=== PATIENT | female | born 1970 | race Caucasian/White ===

== ENCOUNTER 2021-07-21 01:24 | Emergency (ER) | payer OTHER ==
[2021-07-21 01:41] VITALS: TEMP 98; BMI 25.0
[2021-07-21] MEDS ORDERED: ONDANSETRON *ODT* 4 MG TABLET SL ONE (02:50)
[2021-07-21] MEDS ORDERED: ACETAMINOPHEN 325 MG TABLET (FP) PO ONE (02:50)
[2021-07-21] MEDS ORDERED: FAMOTIDINE 20 MG TABLET PO ONE (02:50)
[2021-07-21] MEDS ORDERED: ACETAMINOPHEN 325 MG TABLET (FP) ONE (02:55)
[2021-07-21] MEDS ORDERED: ONDANSETRON *ODT* 4 MG TABLET ONE (02:55)
[2021-07-21] MEDS ORDERED: FAMOTIDINE 20 MG TABLET ONE (02:55)
[2021-07-21 03:24] LABS: BASO % 1.1 % (0-2.0); EOS % 0.9 % (0-4.5); HEMATOCRIT 38.4 % (32.4-45.2); HEMOGLOBIN 13.1 GM/dL (10.7-15.3); LYMPH % 16.4 % (8-40); MCH 32.9 pg (25.7-33.7); MCHC 34.1 g/dl (32.0-36.0); MEAN CELL VOLUME 96.6 fl (80-96); MEAN PLT VOLUME 7.8 fl (7.5-11.1); MONO % 6.7 % (3.8-10.2); NEUT % 74.9 % (42.8-82.8); PLATELET COUNT 345 10^3/uL (134-434); RBC 3.97 M/mm3 (3.60-5.2); RDW 12.9 % (11.6-15.6)
[2021-07-21 03:49] LABS: CHLORIDE 110 mmol/L (98-107); SODIUM 140 mmol/L (136-145)
[2021-07-21 03:50] LABS: MAGNESIUM 2.1 mg/dL (1.8-2.4)
[2021-07-21 03:51] LABS: CALCIUM 8.8 mg/dL (8.5-10.1)
[2021-07-21 03:52] LABS: ALBUMIN 3.4 g/dl (3.4-5.0); ANION GAP 6 MMOL/L (8-16); BLOOD UREA NITROGEN 18.7 mg/dL (7-18); CO2 25 mmol/L (21-32); GLUCOSE,RANDOM 103 mg/dL (74-106)
[2021-07-21 03:54] LABS: PHOSPHOROUS 2.7 mg/dL (2.5-4.9)
[2021-07-21 03:55] LABS: CREATININE 0.8 mg/dL (0.55-1.3); SGOT/AST 12 U/L (15-37); SGPT/ALT 21 U/L (13-61)
[2021-07-21 03:56] LABS: BILIRUBIN,TOTAL 0.5 mg/dL (0.2-1)
[2021-07-21 03:57] LABS: TOT PROT 5.9 g/dl (6.4-8.2)
[2021-07-21 03:58] LABS: ALK PHOS 63 U/L (45-117)
[2021-07-21 06:07] VITALS: BP 109/55; PULSE 60
== END 2021-07-21 06:14 | disposition home or self-care (01) ==
LOC: JER 01:24
DX: R55 Syncope and collapse (principal)
CPT/HCPCS: 36415; 71045-TC-FY; 80053; 82550; 83735; 84100; 84484; 85025; 93005; 93010; 99285-25; Q0162